=== PATIENT | female | born 1935 | race Asian ===

== ENCOUNTER 2018-04-23 18:22 | Inpatient (IN) | payer MEDICARE, OTHER ==
[~2018-04-23] VITALS: Ht 165.1 cm; Wt 50.0 kg
[2018-04-23] MEDS ORDERED: morphine 2 MG INJ IV STA (18:58)
[2018-04-23] MEDS ORDERED: SOD CHLORIDE 0.9% 1,000 ML IV STA (18:58)
[2018-04-23] MEDS ORDERED: ONDANSETRON 4 MG INJ IV STA ×2 (18:58→21:17)
--- NOTE | 2018-04-23 19:26 | ERD ---
ER Documentation Chief Complaint Chief Complaint SOFIA PIERRE,from home,c/o bilat hip pain r/t fall,no KO HPI This is an 82-year-old female with a history of mkd-sxsjeec-nlapinrgw diabetes mellitus and hypertension. The patient lives on her own and is able to attend her activities of daily living. The patient had a mechanical fall several hours prior to arrival. She states she bent over to machine pecan picker something and then fell on her left hip and left head. She is complaining of mild headache but denies any neck pain. She was unable to get up and bear weight due to the pain in her left hip. The patient had a previous right hip fracture several years prior to arrival. She phoned her daughter who arrived to the home and called 911 to bring her to the emergency department to be further evaluated. She did not experience any changes in vision nor has she experienced any emesis. She states the left hip pain is 10 out of 10 in intensity. ROS All systems reviewed and are negative except as per history of present illness. Allergies Allergies: Coded Allergies: No Known Allergy (Unverified , 04/23/18) PMhx/Soc Hx Alcohol Use: No Hx Substance Use: No Hx Tobacco Use: No Smoking Status: Never smoker Physical Exam Vitals Vital Signs Date Temp Pulse Resp B/P (MAP) Pulse Ox O2 O2 Flow FiO2 Time Delivery Rate 04/23/18 100.0 92 18 184/78 96 18:39 (113) Physical Exam Constitutional:Well-developed. Well-nourished. HEENT:Normocephalic. Left temporal scalp hematoma.Pupils were equal round reactive to light. Moist mucous membranes.No tonsillar exudates. Neck: No nuchal rigidity. No lymphadenopathy. No posterior cervical spine tenderness or step-offs. Respiratory: Not using accessory muscles of respiration.Lungs were clear to auscultation bilaterally. No rhonchi. No rales. No wheezing. Cardiovascular: Regular rate regular rhythm.No murmurs. No rubs were appreciated.S1, S2 normal. Distal pulses are palpable 2+ bilaterally. GI: Abdomen was soft. Nontender. Non Distended. No pulsatile abdominal masses or bruits. No rebound. No guarding. Bowel sounds were present and normal. Muscle skeletal: Patient was unable to lift the left lower extremity against gravity secondary to pain. Left lower extremity was shortened compared to the right and externally rotated. Compartments are soft of the bilateral lower extremities.Normal muscle tone.No assymetrical calf tenderness or swelling. Skin: No petechia, no purpura. No lesions on the palms or the soles of the feet. No maculopapular rash. NEURO: Patient was alert, awake, orientated x3.No facial droop. Gait not observed secondary to pain.Speech had regular rate and rhythm. No focal neurological deficits. Result Diagram: 04/23/18191504/23/181915 Results 24 hrs Laboratory Tests Test 04/23/18 19:16 04/23/18 20:24 White Blood Count 4.9 10^3/ul Red Blood Count 3.29 10^6/ul Hemoglobin 10.5 g/dl Hematocrit 31.9 % Mean Corpuscular Volume 97.0 fl Mean Corpuscular Hemoglobin 31.9 pg Mean Corpuscular Hemoglobin Concent 32.9 g/dl Red Cell Distribution Width 13.2 % Platelet Count 103 10^3/UL Mean Platelet Volume 10.6 fl Immature Granulocytes % 0.400 % Neutrophils % 82.0 % Lymphocytes % 8.6 % Monocytes % 8.0 % Eosinophils % 0.4 % Basophils % 0.6 % Nucleated Red Blood Cells % 0.0 /100WBC Immature Granulocytes # 0.020 10^3/ul Neutrophils # 4.0 10^3/ul Lymphocytes # 0.4 10^3/ul Monocytes # 0.4 10^3/ul Eosinophils # 0.0 10^3/ul Basophils # 0.0 10^3/ul Nucleated Red Blood Cells # 0.0 10^3/ul Prothrombin Time 13.2 Sec Prothrombin Time Ratio 1.0 INR International Normalized Ratio 0.99 Activated Partial Thromboplast Time 31.5 Sec Sodium Level 137 mmol/L Potassium Level 4.2 mmol/L Chloride Level 104 mmol/L Carbon Dioxide Level 27 mmol/L Anion Gap 6 Blood Urea Nitrogen 21 mg/dl Creatinine 0.83 mg/dl Est Glomerular Filtrat Rate mL/min mL/min Glucose Level 218 mg/dl Calcium Level 9.4 mg/dl Total Bilirubin 0.5 mg/dl Direct Bilirubin 0.00 mg/dl Indirect Bilirubin 0.5 mg/dl Aspartate Amino Transf (AST/SGOT) 43 IU/L Alanine Aminotransferase (ALT/SGPT) 36 IU/L Alkaline Phosphatase 68 IU/L Troponin I 0.025 ng/ml Total Protein 7.5 g/dl Albumin 4.2 g/dl Globulin 3.30 g/dl Albumin/Globulin Ratio 1.27 Urine Color YELLOW Urine Clarity CLEAR Urine pH 7.0 Urine Specific [place] 1.012 Urine Ketones NEGATIVE mg/dL Urine Nitrite NEGATIVE mg/dL Urine Bilirubin NEGATIVE mg/dL Urine Urobilinogen NEGATIVE mg/dL Urine Leukocyte Esterase NEGATIVE Tae/ul Urine Microscopic RBC 1 /HPF Urine Microscopic WBC 1 /HPF Urine Hemoglobin NEGATIVE mg/dL Urine Glucose 3+ mg/dL Urine Total Protein 1+ mg/dl Current Medications Medications Dose Sig/Sadaf Start Time Status Last (Trade) Ordered Route PRN Stop Time Admin Dose Reason Admin Sodium 1,000 ml @ Q1H STAT 04/23/18 DC 04/23/18 Chloride 1,000 mls/hr IV 18:58 04/23/18 19:28 19:57 Morphine 2 mg ONCE STAT 04/23/18 DC 04/23/18 Sulfate IV 18:58 04/23/18 19:27 (morphine) 19:01 Ondansetron 4 mg ONCE STAT 04/23/18 DC 04/23/18 HCl (Zofran IV 18:58 04/23/18 19:27 Inj) 19:01 IV Flush 3 ml PER 04/23/18 (NS 3 ml) PROTOCOL IV 20:00 Ondansetron 4 mg Q6H PRN 04/23/18 HCl (Zofran PO 20:00 Tab) NAUSEA/VOMITI NG 650 mg Q6H PRN 04/23/18 Acetaminophen PO .PAIN 1-3 20:00 (Tylenol OR TEMP Tab) 1 tab Q6H PRN 04/23/18 Acetaminophen PO .MOD PAIN 20:00 / 4-6 Hydrocodone Bitart ([place] (5/325)) Morphine 2 mg Q4H PRN 04/23/18 Sulfate IV .SEVERE 20:00 (morphine) PAIN 7-10 Docusate 100 mg Q12 PO 04/23/18 Sodium 20:00 (Colace) Bisacodyl 5 mg DAILY PO 04/24/18 (Dulcolax) 09:00 Procedures/MDM This patient presented to the emergency department mechanical fall. Patient is placed on a monitor and storage bin tender continuous pulse oximetry and IV access was established by nursing staff. CT scan of the patient's head was performed due to blunt head trauma. There is no signs of intracerebral hemorrhage mass-effect or midline shift. I did suspect a left hip fracture. Therefore ancillary laboratory work was obtained as well as preoperative cardiac workup. 12 Lead EKG tracing ordered and reviewed by myself showed: Normal sinus rhythm of 94 bpm and no arrhythmia. [place] interval normal. QRS duration normal. Incomplete right bundle branch block No ST segment elevation No ST segment depression. No changes consistent with acute ischemia. The patient had a radiographic imaging performed of her left hip and pelvis. There is no evidence of pelvic fracture but the patient is a left femoral neck fracture. This was a closed fracture. I spoke with Dr. Hong who kindly stated he will consult from an orthopedic perspective. SCDs were placed onto the patient. The patient will be admitted to the hospitalist Dr. Roque in serious condition to the medical surgical floor. Departure Diagnosis: Primary Impression: Fall with significant injury Encounter type: initial encounter Qualified Codes: W19.XXXA - Unspecified fall, initial encounter Additional Impression: Fracture of femoral neck, left, closed Encounter type: initial encounter Qualified Codes: S72.002A - Fracture of unspecified part of neck of left femur, initial encounter for closed fracture Condition: Serious DRAKE HDZ MD Apr 23, 2018 19:26
[2018-04-23] MEDS ORDERED: NACL 0.9% 3 ML SYG IV SCH (20:00)
[2018-04-23] MEDS ORDERED: HYDROCODONE/APAP (5/325) TAB PO PRN (20:00)
[2018-04-23] MEDS ORDERED: ONDANSETRON 4 MG TAB PO PRN (20:00)
--- NOTE | 2018-04-23 20:03 | HP ---
Date/Time of Note Date/Time of Note DATE: 04/23/18 TIME: 20:03 Assessment/Plan VTE Prophylaxis SCD applied (from Nsg): Yes Pharmacological prophylaxis: NA/contraindicated Pharm contraindication: surgical contra Lines/Catheters IV Catheter Type (from Nrsg): Saline Lock Urinary Cath still in place: No Assessment/Plan Hospital Course This is a 82-year-old female being admitted to the [facility] floor for: #1 acute left hip fracture: Secondary to mechanical fall. Imaging studies do show left femoral neck fracture. Bedrest, Kennedy catheter. Pain management. Preoperative stratification, with cardiac enzymes x3, will check an echocardiogram. Will consult cardiology. We will need to get in touch with patient's family member or obtain a fire fighter [place] to get a full history. Dr. Hong of orthopedic surgery is [place] been consulted by the ED. #2 low-grade fever: No signs of any acute infection at the current time, monitor closely. If temperatures continue to range in the 100s will order blood cultures x2. Monitor for any signs of overt fever. May be a stress response. #3 hypertension: Monitor closely, will need to confirm patient's home medication #4 diabetes mellitus we will check hemoglobin A1c, will need to confirm patient's home medications #5 thrombocytopenia: Unknown etiology, monitor CBC serially. Coags appear normal. Patient may need platelet transfusion prior to surgery platelets do drop. #\6 DVT GI prophylaxis: SCDs, no GI prophylaxis indicated Further treatment strategy will be implemented as per the clinical course We will need to again contact the patient's daughter her next of kin in regards to patient's history and functional status. Will also need to confirm patient's home medications. Result Diagram: 04/23/18191504/23/181915 Results 24hrs Laboratory Tests Test 04/23/18 19:16 White Blood Count 4.9 Red Blood Count 3.29 L Hemoglobin 10.5 L Hematocrit 31.9 L Mean Corpuscular Volume 97.0 Mean Corpuscular Hemoglobin 31.9 Mean Corpuscular Hemoglobin Concent 32.9 Red Cell Distribution Width 13.2 Platelet Count 103 L Mean Platelet Volume 10.6 H Immature Granulocytes % 0.400 Neutrophils % 82.0 H Lymphocytes % 8.6 L Monocytes % 8.0 Eosinophils % 0.4 Basophils % 0.6 Nucleated Red Blood Cells % 0.0 Immature Granulocytes # 0.020 Neutrophils # 4.0 Lymphocytes # 0.4 L Monocytes # 0.4 Eosinophils # 0.0 Basophils # 0.0 Nucleated Red Blood Cells # 0.0 Prothrombin Time 13.2 Prothrombin Time Ratio 1.0 INR International Normalized Ratio 0.99 Activated Partial Thromboplast Time 31.5 Sodium Level 137 Potassium Level 4.2 Chloride Level 104 Carbon Dioxide Level 27 Anion Gap 6 Blood Urea Nitrogen 21 H Creatinine 0.83 Est Glomerular Filtrat Rate mL/min Glucose Level 218 Calcium Level 9.4 Total Bilirubin 0.5 Direct Bilirubin 0.00 Indirect Bilirubin 0.5 Aspartate Amino Transf (AST/SGOT) 43 Alanine Aminotransferase (ALT/SGPT) 36 Alkaline Phosphatase 68 Troponin I 0.025 Total Protein 7.5 Albumin 4.2 Globulin 3.30 H Albumin/Globulin Ratio 1.27 HPI/ROS Admit Date/Time Admit Date/Time Hx of Present Illness Chief complaint: Brought in by ambulance from home status post fall The following history was obtained from the ED physician documentation as the patient was not able to provide adequate history given language barrier and I was unable to contact next of kin or use fire fighter airport phone This is an 82-year-old female with a history of jpi-mamxrwo-pyeznypsk diabetes mellitus and hypertension. The patient lives on her own and is able to attend her activities of daily living. The patient had a mechanical fall several hours prior to arrival. She states she bent over to cotton picker something and then fell on her left hip and left head. She is complaining of mild headache but denies any neck pain. She was unable to get up and bear weight due to the pain in her left hip. The patient had a previous right hip fracture several years prior to arrival. She phoned her daughter who arrived to the home and called 911 to bring her to the emergency department to be further evaluated. She did not exp erience any changes in vision nor has she experienced any emesis. She states the left hip pain is 10 out of 10 in intensity. Allergies: NKDA Medications: Unknown, will need to confirm ROS Subjective hx not possible: other (Language barrier) PMH/Family/Social Past Medical History Diabetes mellitus, hypertension Coded Allergies: No Known Allergy (Unverified , 04/23/18) Past Surgical History Right hip surgery Family History Significant Family History: no pertinent family hx Social History Alcohol Use: none Smoking Status: Never smoker Drug Use: none Exam/Review of Systems Vital Signs Vitals Vital Signs Date Temp Pulse Resp B/P (MAP) Pulse Ox O2 O2 Flow FiO2 Time Delivery Rate 04/23/18 100.0 92 18 184/78 96 18:39 (113) Exam Exam General: Patient is a pleasant female currently lying in bed sleeping, she is easily arousable, language barrier makes it difficult to communicate HEENT: Atraumatic, normocephalic. The pupils are equal, round and reactive. Extraocular motor are intact Neck: Supple with full range of motion. No rigidity or meningismus Chest: Nontender Lungs: Clear to auscultation bilaterally no crackles rales or wheezing Heart: Normal S1-S2, Regular rhythm and rate. No murmur, S3, or S4 Abdomen: Soft , nontender, nondistended , bowel sounds are present. No guarding no rebound tenderness , No masses or organomegaly. No costovertebral temporal angle mass Extremities: Left hip pain to palpation, Neurologic: Normal mental status, speech normal, cranial nerves II through XII are intact, motor and sensory are intact, gait not assessed secondary to fracture and pain Additional Comments EKG: Normal sinus rhythm at approximately 94 bpm, no ST or T wave abnormalities concerning for acute ischemia PROCEDURE: DX Chest 1 View CLINICAL INDICATION: Abdominal pain. ED patient. TECHNIQUE: AP Portable chest. COMPARISON: None FINDINGS: Hyperinflated lungs. Normal cardiac and mediastinal configuration. Aortic calcified plaque present. No CHF or hilar enlargement. Costochondral calcifications are present. Lungs are clear. IMPRESSION: 1. COPD/emphysema. 2. Chronic senescent change. 3. No acute disease. RPTAT: HLRS Physician Konrad Date Time Electronically viewed and signed by Physician Konrad on 04/23/2018 19:30 RS/ CC: DRAKE HDZ MD [id number] PROCEDURE: DX Hip 2 view. CLINICAL INDICATION: Fell on left hip. Left hip pain. TECHNIQUE: AP and lateral views COMPARISON: None FINDINGS: Osseous structures: Bones are demineralized. Acute left femoral neck fracture. The left superior inferior pubic rami are intact. No lytic or blastic changes. Joint space: Joint space maintained. Soft tissues: Normal appearing soft tissues. No radiopaque foreign body or soft tissue gas. IMPRESSION: Acute left femoral neck fracture. RPTAT: HLRS Jorge Núñez, Physician Date Time Electronically viewed and signed by Jorge Núñez Physician on 04/23/2018 19:32 RS/ CC: DRAKE HDZ MD [id number] PROCEDURE: DX Pelvis x-ray CLINICAL INDICATION: 80-year-old female. Fell. Left hip pain. TECHNIQUE: AP view of the pelvis COMPARISON: None FINDINGS: Osseous structures: The bones are demineralized. There is an acute fracture involving the left femoral neck. The left superior and inferior pubic rami are intact. Right hip prosthesis is present with anatomic alignment of the components. No lytic or blastic changes. Joints: Intact sacroiliac joints. Intact pubic symphysis. No hip dislocation. Soft tissues: No radiopaque foreign body or soft tissue gas. Arterial calcified plaque not visualized. IMPRESSION: 1. Acute left hip fracture. 2. Anatomically aligned right hip prosthesis. RPTAT: RS Jorge Núñez Physician Date Time Electronically viewed and signed by Jorge Núñez Physician on 04/23/2018 19:31 RS/ CC: DRAKE HDZ MD [id number] GEENA SAHU Apr 23, 2018 20:03
[2018-04-23] MEDS ORDERED: HYDROmorphONE 0.5 MG/0.5 ML SYG IV STA (21:17)
[2018-04-23] MEDS: morphine 2 MG INJ IV PRN (21:51)
[2018-04-23 22:00] VITALS: BP_SYST 151; BP_SYST 174; BP_DIAS 68; BP_DIAS 72; PULSE 107; RESP 18
[2018-04-23] MEDS ORDERED: hydrALAzine 20 MG INJ IV PRN (22:30)
[2018-04-23] MEDS: ACETAMINOPHEN 325 MG TAB PO PRN (22:39)
[2018-04-23] MEDS: DOCUSATE SODIUM 100 MG CAP PO SCH (22:39)
[2018-04-23 23:00] VITALS: BP 151/68; PULSE 107
[2018-04-23 23:48] VITALS: Ht 165.1 cm; Wt 50.0 kg
[2018-04-24 01:50] VITALS: BP 115/56; PULSE 93; RESP 18
[2018-04-24] MEDS: morphine 2 MG INJ IV PRN (05:16)
[2018-04-24 07:54] VITALS: BP 125/61; PULSE 82; RESP 18
[2018-04-24] MEDS: BISACODYL (EC) 5 MG TAB PO SCH (09:00)
[2018-04-24] MEDS: DOCUSATE SODIUM 100 MG CAP PO SCH ×2 (09:00→20:36)
--- NOTE | 2018-04-24 10:16 | PN ---
Date/Time of Note Date/Time of Note DATE: 04/24/18 TIME: 10:06 Assessment/Plan VTE Prophylaxis SCD applied (from Nsg): Yes Pharmacological prophylaxis: NA/contraindicated Pharm contraindication: surgical contra Lines/Catheters IV Catheter Type (from Nrsg): Saline Lock Urinary Cath still in place: Yes Reason Cath still needed: other (indicate) (immobile) Assessment/Plan Assessment/Plan 82 yo woman history of HTN and diabetes presents with acute L hip fracture. # acute left hip fracture: - Secondary to mechanical fall. - Imaging studies do show left femoral neck fracture. - Bedrest, Kennedy catheter. - Opioid analgesics. - No cardiac history. Patient can ambulate without SOB or dyspnea. Denies heart failure symptoms. - Cardiovascularly, patient is optimized for surgery with no further cardiac workup needed. She does have thrombocytopenia with platelets 87. From medicine perspective, as long as platelets >50 she is optimized for surgery. #Elevated temperature - Temp low 100s. - CXR negative for consolidations. UA negative for bacteruria or infection. Patient has no other signs of infection. - This may be a stress response # hypertension: - Now normotensive after pain control and IV hydralazine x1. - Monitor carefully; will get patient's home meds. # diabetes mellitus - Hgb A1C 6.8 - Sliding scale insulin - Awaiting patient's home medications. # thrombocytopenia: - Unknown etiology - Transfuse for platelets <50 or per surgical goal. # DVT GI prophylaxis: SCDs, no GI prophylaxis indicated Result Diagram: 04/24/18 0416 04/24/18 0438 Subjective 24 Hr Interval Summary Free Text/Dictation No acute overnight events. L hip pain adequately controlled. Patient bumped for surgery today. Will start diet, make NPO after midnight. The patient denies any cardiac history except for HTN. Able to ambulate without chest pain. No dyspnea, orthopnea, PND, or other heart failure symptoms. She does not know what medications she takes at home. Daughter at bedside updated about the plan. She also does not know what medications the patient takes. Exam/Review of Systems Exam Vitals Vital Signs Date Temp Pulse Resp B/P (MAP) Pulse Ox O2 O2 Flow FiO2 Time Delivery Rate 04/24/18 99.6 82 18 125/61 96 Nasal 07:54 (82) Cannula 2/9/19 2.0 22:00 Intake and Output 04/23/18 04/23/18 04/24/18 1515:00 23:00 07:00 OutputOutput Total 750 ml BalanceBalance -750 ml Exam General: Patient is a pleasant woman, frail appearing and thin, speaks some [place]ian and fluent Latvian. HEENT: Atraumatic, normocephalic. The pupils are equal, round and reactive. Extraocular motor are intact Neck: Supple with full range of motion. No rigidity or meningismus Chest: Nontender Lungs: Clear to auscultation bilaterally no crackles rales or wheezing Heart: Normal S1-S2, Regular rhythm and rate. No murmur, S3, or S4 Abdomen: Soft , nontender, nondistended , Extremities: Left hip pain to palpation, Medications Medication Current Medications IV Flush (NS 3 ml) 3 ml PER PROTOCOL IV ; Start 04/23/18 at 20:00 Ondansetron HCl (Zofran Tab) 4 mg Q6H PRN PO NAUSEA/VOMITING; Start 04/23/18 at 20:00 Acetaminophen (Tylenol Tab) 650 mg Q6H PRN PO .PAIN 1-3 OR TEMP Last administered on 04/23/18at 22:39; Admin Dose 650 MG; Start 04/23/18 at 20:00 Acetaminophen/ Hydrocodone Bitart ([place] (5/325)) 1 tab Q6H PRN PO .MOD PAIN 4- 6; Start 04/23/18 at 20:00 Morphine Sulfate (morphine) 2 mg Q4H PRN IV .SEVERE PAIN 7-10 Last administered on 04/24/18at 05:16; Admin Dose 2 MG; Start 04/23/18 at 20:00 Docusate Sodium (Colace) 100 mg Q12 PO Last administered on 04/23/18at 22:39; Admin Dose 100 MG; Start 04/23/18 at 20:00 Bisacodyl (Dulcolax) 5 mg DAILY PO ; Start 04/24/18 at 09:00 Hydralazine HCl (Apresoline) 10 mg Q6H PRN IV ELEVATED BLOOD PRESSURE Last administered on 04/23/18at 22:39; Admin Dose 10 MG; Start 04/23/18 at 22:30 SEVERO STOKES MD Apr 24, 2018 10:16
--- NOTE | 2018-04-24 10:17 | CONS ---
DATE OF ADMISSION: 04/23/2018 DATE OF CONSULTATION: 04/24/2018 HISTORY OF PRESENT ILLNESS: The patient is an 82-year-old female who was admitted on April when she was brought into the emergency room because of the painful swelling and limit of marjorie on involving her left hip. According to available information, she is usually ambulatory without any major difficulties until the day of admission when she have sustained a ground-level fall. At the t birgit of the fall, she landed on her left hip and buttock and following the fall, she was not able to s tand up or walk because of the severe pain. My examination revealed an 82-year-old female who is alert and oriented. She was complaining of pain involving her left hip. There was tenderness and swelling around the left hip. There was an obviou s shortening and external rotation of the left lower extremity. Range of motion of the left hip was not tested because of the obvious pain. There were no signs of acute neurovascular compromise involv ing the left lower extremity. DIAGNOSTIC STUDIES: X-rays of the left hip revealed an obvious subcapital femoral neck fracture of t he left hip which is displaced. Of interest is that she has a hemiarthroplasty prosthesis is in the right hip which was done about 10 years ago. DIAGNOSTIC IMPRESSION: Subcapital femoral neck fracture of the left hip. TREATMENT PLAN: To carry out the hemiarthroplasty of the left hip as soon as she can be medically cl eared for surgery. Dictated By: SOLO LASSITER MD IK/NTS Conf#: [id number] DID#: [id number] CC: GEENA SAHU MD; SEVERO STOKES MD; SEVERO DON MD;*End*
[2018-04-24] MEDS ORDERED: GLUCOSE GEL 15 GRAM TUBE PO PRN ×2 (10:30)
[2018-04-24] MEDS ORDERED: DEXTROSE 50% 50 ML SYRINGE IV PRN ×2 (10:30)
[2018-04-24] MEDS ORDERED: GLUCAGON 1 MG INJ IM PRN (10:30)
[2018-04-24] MEDS ORDERED: GLUCOSE GEL 15 GRAM TUBE BUCCAL PRN (10:30)
[2018-04-24] MEDS: INSULIN ASPART [NOVOLOG] 3 ML PEN SC SCH ×3 (12:52→20:34)
[2018-04-24 14:28] VITALS: BP 134/63; PULSE 66; RESP 18
[2018-04-24 20:27] VITALS: BP 128/81; PULSE 63; RESP 18
[2018-04-25 01:50] VITALS: BP 149/63; PULSE 73; RESP 18
[2018-04-25] MEDS: ACCU-CHEK XX SCH (02:00)
[2018-04-25 07:53] VITALS: BP 150/67; PULSE 70; RESP 18
[2018-04-25 08:07] VITALS: BP 139/62
[2018-04-25] MEDS: DOCUSATE SODIUM 100 MG CAP PO SCH ×2 (08:28→21:55)
[2018-04-25] MEDS: BISACODYL (EC) 5 MG TAB PO SCH (08:28)
[2018-04-25] MEDS: INSULIN ASPART [NOVOLOG] 3 ML PEN SC SCH ×4 (08:28→21:00)
--- NOTE | 2018-04-25 11:07 | PN ---
Date/Time of Note Date/Time of Note DATE: 04/25/18 TIME: 11:01 Assessment/Plan VTE Prophylaxis Risk score (from Nsg)>0 risk: 10 SCD applied (from Nsg): Yes SCD contraindicated: other Pharmacological prophylaxis: other Lines/Catheters IV Catheter Type (from Nrsg): Saline Lock Urinary Cath still in place: Yes Reason Cath still needed: urinary retention Assessment/Plan Hospital Course S: No acute events overnight, seen by orthopedic surgery team yesterday. O: VS - see below PE: General: Patient is a pleasant woman, frail appearing and thin, lying in bed presently HEENT: Atraumatic, normocephalic. The pupils are equal, round and reactive. Extraocular motor are intact Neck: Supple with full range of motion. No rigidity or meningismus Chest: Nontender Lungs: Clear to auscultation bilaterally no crackles rales or wheezing Heart: Normal S1-S2, Regular rhythm and rate. No murmur, S3, or S4 Abdomen: Soft , nontender, nondistended , Extremities: Positive left hip pain to palpation Assessment/Plan: 82 yo woman history of HTN and diabetes presents with acute L h ip fracture. # acute left hip fracture: - Secondary to mechanical fall- Imaging studies do show left femoral neck fracture. -For now continue bedrest, Kennedy catheter. - Opioid analgesics, PT and OT eval - Apparently patient has no cardiac history. Patient can ambulate without SOB or dyspnea. Earlier this admission, denied heart failure symptoms. - Cardiovascularly and medically, patient appears optimized for surgery. Troponins are negative, no significant EKG changes, A1c 6.8, but sugars are stable she does have thrombocytopenia with platelets 87. From medicine perspective, as long as platelets >50 she is likely optimized for surgery. #Elevated temperature- Temp low 100s as late as yesterday, none overnight or this morning- CXR negative for consolidations. UA negative for bacteruria or infection. Patient has no other signs of infection. -Monitor for now, WBC normal, this may be a stress response # hypertension: - Now normotensive after pain control and IV hydralazine x1. - Monitor carefully; will get patient's home meds. # diabetes mellitus- Hgb A1C 6.8 -Continue sliding scale insulin - Awaiting patient's home medications. # thrombocytopenia: - Unknown etiology. Last CBC was yesterday, platelets 87, no signs of bleeding -Monitor, only consider transfuse for platelets <50 or per surgical goal. # DVT GI prophylaxis: SCDs, no GI prophylaxis indicated Result Diagram: 04/24/18 0416 04/24/18 0438 Results 24hrs Laboratory Tests Test 04/24/18 12:48 04/24/18 17:57 04/24/18 20:32 04/25/18 06:39 Bedside Glucose 158 148 170 Lab Scanned BLOOD TRANSFUSIO Report N Test 04/25/18 08:24 Bedside Glucose 145 Exam/Review of Systems Exam Vitals Vital Signs Date Temp Pulse Resp B/P (MAP) Pulse Ox O2 O2 Flow FiO2 Time Delivery Rate 04/25/18 139/62 08:07 (87) 04/25/18 Nasal 2.0 08:00 Cannula 04/25/18 98.0 70 18 100 07:53 Intake and Output 04/24/18 04/24/18 04/25/18 1515:00 23:00 07:00 IntakeIntake Total 550 ml 300 ml OutputOutput Total 150 ml 550 ml BalanceBalance 400 ml -250 ml Results Results 24hrs Laboratory Tests Test 04/24/18 12:48 04/24/18 17:57 04/24/18 20:32 04/25/18 06:39 Bedside Glucose 158 148 170 Lab Scanned BLOOD TRANSFUSIO Report N Test 04/25/18 08:24 Bedside Glucose 145 Medications Medication Current Medications IV Flush (NS 3 ml) 3 ml PER PROTOCOL IV ; Start 04/23/18 at 20:00 Ondansetron HCl (Zofran Tab) 4 mg Q6H PRN PO NAUSEA/VOMITING; Start 04/23/18 at 20:00 Acetaminophen (Tylenol Tab) 650 mg Q6H PRN PO .PAIN 1-3 OR TEMP Last administered on 04/23/18at 22:39; Admin Dose 650 MG; Start 04/23/18 at 20:00 Acetaminophen/ Hydrocodone Bitart (Clarita (5/325)) 1 tab Q6H PRN PO .MOD PAIN 4- 6; Start 04/23/18 at 20:00 Morphine Sulfate (morphine) 2 mg Q4H PRN IV .SEVERE PAIN 7-10 Last administered on 04/24/18at 05:16; Admin Dose 2 MG; Start 04/23/18 at 20:00 Docusate Sodium (Colace) 100 mg Q12 PO Last administered on 04/25/18at 08:28; Admin Dose 100 MG; Start 04/23/18 at 20:00 Bisacodyl (Dulcolax) 5 mg DAILY PO Last administered on 04/25/18at 08:28; Admin Dose 5 MG; Start 04/24/18 at 09:00 Hydralazine HCl (Apresoline) 10 mg Q6H PRN IV ELEVATED BLOOD PRESSURE Last administered on 04/23/18at 22:39; Admin Dose 10 MG; Start 04/23/18 at 22:30 Diagnostic Test (Pha) (Accu-Chek) 1 ea 02 XX ; Start 04/25/18 at 02:00 Insulin Aspart (Novolog Insulin Pen) NOVOLOG *MILD* ALGORITHM WITH MEALS BEDTIME SC Last administered on 04/25/18 08:28; Admin Dose 1 UNIT; Start 04/24/18 at 11:40 Miscellaneous Information 1 ea NOTE XX ; Start 04/24/18 at 10:30 Glucose (Glutose) 15 gm Q15M PRN PO DECREASED GLUCOSE; Start 04/24/18 at 10:30 Glucose (Glutose) 22.5 gm Q15M PRN PO DECREASED GLUCOSE; Start 04/24/18 at 10:30 Dextrose (D50w Syringe) 25 ml Q15M PRN IV DECREASED GLUCOSE; Start 04/24/18 at 10:30 Dextrose (D50w Syringe) 50 ml Q15M PRN IV DECREASED GLUCOSE; Start 04/24/18 at 10:30 Glucagon (Glucagen) 1 mg Q15M PRN IM DECREASED GLUCOSE; Start 04/24/18 at 10:30 Glucose (Glutose) 15 gm Q15M PRN BUCCAL DECREASED GLUCOSE; Start 04/24/18 at 10:30 CESAR STONE Apr 25, 2018 11:07
[2018-04-25 13:20] VITALS: BP 150/68; PULSE 81; RESP 18
--- NOTE | 2018-04-25 16:45 | RADRPT ---
Echocardiogram Report Patient Name: MARILY TABARESPatient ID: [id number] : 5 ([id number] )Study Date: 04/24/2018 9:05:44 AM Gender: FAccession #: [id number] Tech: Charly Castro RDCS Location: [facility] Ref.Physician: GEENA SAHU Height(Cm): BSA: Weight(Kg): Quality: AdequateOrder Physician: Jesus Sahu Account #: Procedures: Echocardiographic Report: Transthoracic echocardiogram with complete 2D, M-Mode, and doppler examination. Indications: Pre-op. Measurements: 2D/M Mode Doppler Measurement Value Normal Range Measurement Value Normal Range LVIDd 2D 3.0 [ 3.8 - 5.2 ] cm AV Peak David 1.2 [ 100.0 - 170.0 ] cm/sec LVIDs 2D 2.0 [ 2.2 - 3.5 ] cm AV Peak PG 6.0 [ 2.0 - 9.0 ] mmHg LVPWd 2D 0.6 [ 0.6 - 0.9 ] cm LVOT Peak David 0.9 [ 70.0 - 110.0 ] cm/sec IVSd 2D 0.8 [ 0.6 - 0.9 ] cm LVOT Peak PG 3.0 [ 2.0 - 6.0 ] mmHg AoR Diam 2D 1.9 [ 2.3 - 3.1 ] cm MV E Peak David 1.2 [ 60.0 - 130.0 ] cm/sec EDV 2D 33.9 [ 46.0 - 106.0 ] ml MV A Peak David 1.1 [ 100.0 - 120.0 ] cm/sec ESV 2D 12.7 [ 14.0 - 42.0 ] ml MV E/A 1.1 [ 0.8 - 1.5 ] ratio EF 2D 62.5 [ 54.0 - 74.0 ] percent MV Decel Time 169 [ 104 - 258 ] msec LA Dimen 2D 2.7 [ 2.7 - 3.8 ] cm Lat E` David 0.1 [ 10.0 - 15.0 ] cm/sec Lateral E/E` 15.8 [ 1.0 - 2.0 ] ratio Med E` David 0.1 cm/sec MV E/A 1.1 [ 0.8 - 1.5 ] ratio TR Peak David 2.5 [ 100.0 - 280.0 ] cm/sec TR Peak PG 25.0 mmHg RVSP 25.0 [ 10.0 - 36.0 ] mmHg RA Pressure 3.0 mmHg Findings: Left Ventricle: Normal left ventricular systolic function. Normal left ventricular cavity size. Normal left ventricular wall thickness. Ejection fraction is visually estimated at 60-65 %. Right Ventricle: Normal right ventricular size. Normal right ventricular systolic function. Left Atrium: The left atrium is normal in size. Right Atrium: The right atrium is normal in size. Mitral Valve: Mild mitral annular calcification. Trace mitral regurgitation. Aortic Valve: Normal appearance of the aortic valve. No aortic regurgitation. Tricuspid Valve: Normal appearance of the tricuspid valve. There is trace tricuspid regurgitation. Pericardium: Normal pericardium with no significant pericardial effusion. Aorta: Normal aortic root. IVC: Normal size and normal respiratory collapse consistent with normal right atrial pressure. Conclusions: Normal left ventricular systolic function. Normal left ventricular cavity size. Normal left ventricular wall thickness. Ejection fraction is visually estimated at 60-65 %. Mild mitral annular calcification. Trace mitral regurgitation. Normal appearance of the tricuspid valve. There is trace tricuspid regurgitation. Electronically Signed By: Armen Ramos 2018-04-25 16:44:40 PST
[2018-04-25 19:24] VITALS: BP 147/65; PULSE 78; RESP 16
[2018-04-25] MEDS: ATORVASTATIN 10 MG TAB PO SCH (21:55)
[2018-04-25] MEDS: DOXEPIN 25 MG CAP PO SCH (21:55)
[2018-04-26] VITALS (22 sets, daily range): BP systolic 98–168; BP diastolic 38–71; PULSE 71–94; RESP 14–40
[2018-04-26] MEDS ORDERED: SOD CHLORIDE 0.45% 1,000 ML IV SCH
[2018-04-26] MEDS: ACCU-CHEK XX SCH (02:00)
[2018-04-26] MEDS ORDERED: EPHEDrine SULFATE 50 MG/5 ML SYG ONE (07:00)
[2018-04-26] MEDS: INSULIN ASPART [NOVOLOG] 3 ML PEN SC SCH ×4 (08:30→21:00)
[2018-04-26] MEDS: LOSARTAN 50 MG TAB PO SCH (08:43)
[2018-04-26] MEDS ORDERED: LINAGLIPTIN 5 MG TABLET PO SCH (09:00)
[2018-04-26] MEDS: CHOLECALCIFEROL 2,000 UNIT CAP PO SCH (09:00)
[2018-04-26] MEDS: BISACODYL (EC) 5 MG TAB PO SCH (09:00)
[2018-04-26] MEDS ORDERED: ATORVASTATIN 10 MG TAB PO ONE (09:00)
[2018-04-26] MEDS: DOCUSATE SODIUM 100 MG CAP PO SCH ×2 (09:00→21:43)
[2018-04-26] MEDS ORDERED: POTASSIUM PHOSPHATE 20 MEQ in SOD CHLORIDE 0.9% 250 ML IVPB ONE (10:00)
--- NOTE | 2018-04-26 12:29 | PN ---
Date/Time of Note Date/Time of Note DATE: 04/26/18 TIME: 12:26 Assessment/Plan VTE Prophylaxis Risk score (from Nsg)>0 risk: 8 SCD applied (from Nsg): Yes Pharmacological prophylaxis: other Lines/Catheters IV Catheter Type (from Nrsg): Peripheral IV Urinary Cath still in place: Yes Reason Cath still needed: urinary retention Assessment/Plan Hospital Course S: No acute events overnight, seen by orthopedic surgery team yesterday. O: VS - see below PE: General: lying in bed presently, no acute distress, sleeping HEENT: Atraumatic, normocephalic. The pupils are equal, round and reactive. Extraocular motor are intact Neck: Supple with full range of motion. No rigidity or meningismus Chest: Nontender Lungs: Clear to auscultation bilaterally no crackles rales or wheezing Heart: Normal S1-S2, Regular rhythm and rate. No murmur, S3, or S4 Abdomen: Soft , nontender, nondistended , Extremities: Positive left hip pain to palpation Assessment/Plan: 82 yo woman history of HTN and diabetes presents with acute L hip fracture. # acute left hip fracture: - Secondary to mechanical fall- Imaging studies do show left femoral neck fracture. - For now continue bedrest, Kennedy catheter. -Continue careful opioid analgesics, follow-up recognitions PT and OT eval - Apparently patient has no cardiac history. Patient can ambulate without SOB or dyspnea. Earlier this admission, denied heart failure symptoms. - Cardiovascularly and medically, patient appears optimized for surgery. Tr oponins are negative, no significant EKG changes, A1c 6.8, but sugars are stable she does have thrombocytopenia , but no signs of bleeding; from medicine perspective, as long as platelets >50 she is likely optimized for surgery. #Elevated temperature- Temp low 100s 2 days ago, but no elevated temperatures in the last 24 hours- CXR negative for consolidations. UA negative for bacteruria or infection. Patient has no other signs of infection. -Monitor for now, WBC normal, this may be a stress response # hypertension: Presently stable. - Monitor carefully; follow-up list of patient's home meds. # diabetes mellitus- Hgb A1C 6.8 -Continue sliding scale insulin # thrombocytopenia: - Unknown etiology. Platelets down to 66 today, but no signs of bleeding per -Monitor, only consider transfuse for platelets <50 or per surgical goal. # DVT GI prophylaxis: SCDs, no GI prophylaxis indicated Result Diagram: 04/26/18 0443 04/26/18 0443 Results 24hrs Laboratory Tests Test 04/25/18 12:45 04/25/18 17:40 04/25/18 21:59 04/26/18 04:43 Bedside Glucose 202 138 176 White Blood Count 6.2 Red Blood Count 4.06 #L Hemoglobin 12.9 Hematocrit 38.5 Mean Corpuscular 94.8 Volume Mean Corpuscular 31.8 Hemoglobin Mean Corpuscular 33.5 Hemoglobin Concent Red Cell 13.4 Distribution Width Platelet Count 66 #L Mean Platelet Volume 11.3 H Immature 0.300 Granulocytes % Neutrophils % 78.9 H Lymphocytes % 11.5 L Monocytes % 7.0 Eosinophils % 1.8 Basophils % 0.5 Nucleated Red Blood 0.0 Cells % Immature 0.020 Granulocytes # Neutrophils # 4.9 Lymphocytes # 0.7 L Monocytes # 0.4 Eosinophils # 0.1 Basophils # 0.0 Nucleated Red Blood 0.0 Cells # Sodium Level 137 Potassium Level 4.0 Chloride Level 102 Carbon Dioxide Level 28 Anion Gap 7 Blood Urea Nitrogen 16 Creatinine 0.72 Est Glomerular Filtrat Rate mL/min Glucose Level 158 Calcium Level 8.6 Phosphorus Level 2.4 L Magnesium Level 2.2 Test 04/26/18 08:36 Bedside Glucose 130 Exam/Review of Systems Exam Vitals Vital Signs Date Temp Pulse Resp B/P (MAP) Pulse Ox O2 O2 Flow FiO2 Time Delivery Rate 04/26/18 98.4 71 18 162/68 95 Room Air 08:29 (99) 04/25/18 2.0 20:00 Intake and Output 04/25/18 04/25/18 04/26/18 1515:00 23:00 07:00 IntakeIntake Total 120 ml 200 ml 200 ml OutputOutput Total 500 ml 600 ml BalanceBalance 120 ml -300 ml -400 ml Results Results 24hrs Laboratory Tests Test 04/25/18 12:45 04/25/18 17:40 04/25/18 21:59 04/26/18 04:43 Bedside Glucose 202 138 176 White Blood Count 6.2 Red Blood Count 4.06 #L Hemoglobin 12.9 Hematocrit 38.5 Mean Corpuscular 94.8 Volume Mean Corpuscular 31.8 Hemoglobin Mean Corpuscular 33.5 Hemoglobin Concent Red Cell 13.4 Distribution Width Platelet Count 66 #L Mean Platelet Volume 11.3 H Immature 0.300 Granulocytes % Neutrophils % 78.9 H Lymphocytes % 11.5 L Monocytes % 7.0 Eosinophils % 1.8 Basophils % 0.5 Nucleated Red Blood 0.0 Cells % Immature 0.020 Granulocytes # Neutrophils # 4.9 Lymphocytes # 0.7 L Monocytes # 0.4 Eosinophils # 0.1 Basophils # 0.0 Nucleated Red Blood 0.0 Cells # Sodium Level 137 Potassium Level 4.0 Chloride Level 102 Carbon Dioxide Level 28 Anion Gap 7 Blood Urea Nitrogen 16 Creatinine 0.72 Est Glomerular Filtrat Rate mL/min Glucose Level 158 Calcium Level 8.6 Phosphorus Level 2.4 L Magnesium Level 2.2 Test 04/26/18 08:36 Bedside Glucose 130 Medications Medication Current Medications IV Flush (NS 3 ml) 3 ml PER PROTOCOL IV ; Start 04/23/18 at 20:00 Ondansetron HCl (Zofran Tab) 4 mg Q6H PRN PO NAUSEA/VOMITING; Start 04/23/18 at 20:00 Acetaminophen (Tylenol Tab) 650 mg Q6H PRN PO .PAIN 1-3 OR TEMP Last administered on 04/23/18at 22:39; Admin Dose 650 MG; Start 04/23/18 at 20:00 Acetaminophen/ Hydrocodone Bitart (Gamaliel (5/325)) 1 tab Q6H PRN PO .MOD PAIN 4- 6; Start 04/23/18 at 20:00 Morphine Sulfate (morphine) 2 mg Q4H PRN IV .SEVERE PAIN 7-10 Last administered on 04/24/18at 05:16; Admin Dose 2 MG; Start 04/23/18 at 20:00 Docusate Sodium (Colace) 100 mg Q12 PO Last administered on 04/25/18at 21:55; Admin Dose 100 MG; Start 04/23/18 at 20:00 Bisacodyl (Dulcolax) 5 mg DAILY PO Last administered on 04/25/18at 08:28; Admin Dose 5 MG; Start 04/24/18 at 09:00 Hydralazine HCl (Apresoline) 10 mg Q6H PRN IV ELEVATED BLOOD PRESSURE Last administered on 04/23/18at 22:39; Admin Dose 10 MG; Start 04/23/18 at 22:30 Diagnostic Test (Pha) (Accu-Chek) 1 ea 02 XX ; Start 04/25/18 at 02:00 Insulin Aspart (Novolog Insulin Pen) NOVOLOG *MILD* ALGORITHM WITH MEALS BEDTIME SC Last administered on 04/25/18at 12:47; Admin Dose 2 UNIT; Start 04/24/18 at 11:40 Miscellaneous Information 1 ea NOTE XX ; Start 04/24/18 at 10:30 Glucose (Glutose) 15 gm Q15M PRN PO DECREASED GLUCOSE; Start 04/24/18 at 10:30 Glucose (Glutose) 22.5 gm Q15M PRN PO DECREASED GLUCOSE; Start 04/24/18 at 10:30 Dextrose (D50w Syringe) 25 ml Q15M PRN IV DECREASED GLUCOSE; Start 04/24/18 at 10:30 Dextrose (D50w Syringe) 50 ml Q15M PRN IV DECREASED GLUCOSE; Start 04/24/18 at 10:30 Glucagon (Glucagen) 1 mg Q15M PRN IM DECREASED GLUCOSE; Start 04/24/18 at 10:30 Glucose (Glutose) 15 gm Q15M PRN BUCCAL DECREASED GLUCOSE; Start 04/24/18 at 10:30 Cholecalciferol (Vitamin D) 2,000 unit DAILY PO ; Start 04/26/18 at 09:00 Doxepin HCl (Sinequan) 25 mg HS PO Last administered on 04/25/18at 21:55; Admin Dose 25 MG; Start 04/25/18 at 21:00 Losartan Potassium (Cozaar) 50 mg DAILY PO Last administered on 04/26/18at 08:43; Admin Dose 50 MG; Start 04/26/18 at 09:00 Miscellaneous Information (* Miscellaneous Pharmacy Order) SHIRLEY CASTAÑEDA 6,000 UN... ONCE XX ; Start 04/25/18 at 16:30; Status UNV Atorvastatin Calcium (Lipitor) 10 mg HS PO Last administered on 04/25/18at 21:55; Admin Dose 10 MG; Start 04/25/18 at 21:00 Linagliptin (Tradjenta) 5 mg DAILY PO ; Start 04/26/18 at 09:00 Sodium Chloride 1,000 ml @ 40 mls/hr Q24H IV Last administered on 04/26/18at 00:06; Admin Dose 40 MLS/HR; Start 04/26/18 at 00:00 Potassium Phosphate 20 meq/ Sodium Chloride 254.5455 ml @ 63.636 m... ONCE ONCE IVPB Last administered on 04/26/18at 11:02; Admin Dose 63.636 MLS/HR; Start 04/26/18 at 10:00; Stop 04/26/18 at 13:59 CESAR STONE Apr 26, 2018 12:29
[2018-04-26] MEDS ORDERED: LOSA50TA14 PO (14:24)
[2018-04-26] MEDS ORDERED: DOXE25CA2 PO (14:24)
[2018-04-26] MEDS ORDERED: SITA50TA2 PO (14:24)
[2018-04-26] MEDS ORDERED: ATOR10TA65 PO (14:24)
[2018-04-26] MEDS ORDERED: CHOL200078 PO (14:24)
--- NOTE | 2018-04-26 17:09 | PREAC ---
Date/Time of Note Date/Time of Note DATE: 04/26/18 TIME: 17:07 Anesthesia Eval and Record Evaluation Time Pre-Procedure Interview DATE: 04/26/18 TIME: 17:07 Age 82 Sex female NPO: 8 hrs Preoperative diagnosis Left Hip Fracture Planned procedure Left Hip Hemiarthroplasty Past Medical History Past Medical History: Includes Cardio: HTN, Dyslipidemia Endo: Diabetes Pulm: COPD Musculoskeletal: Osteoarthritis Heme: Anemia, Thrombocytopenia Surgery & Anesthesia Issues No known issue Meds Anticoagulation: No Beta Hadley within 24 hr: No Reason Beta Hadley not given: Pt. not on B-Hadley Reported Medications Sitagliptin* (Januvia*) 50 Mg Tablet, 50 MG PO DAILY, #30 TAB 04/26/18 Atorvastatin Calcium (Atorvastatin Calcium) 10 Mg Tablet, 10 MG PO QHS, #30 TAB 04/26/18 Cholecalciferol (Vitamin D3) (Vitamin D3) 2,000 Unit Tab.chew, 2000 UNIT PO, TAB.CHEW 04/26/18 Losartan Potassium* (Losartan Potassium*) 50 Mg Tablet, 50 MG PO DAILY, TAB 04/26/18 Doxepin Hcl* (Doxepin Hcl*) 25 Mg Capsule, 25 MG PO HS, CAP 04/26/18 Current Medications IV Flush (NS 3 ml) 3 ml PER PROTOCOL IV ; Start 04/23/18 at 20:00 Ondansetron HCl (Zofran Tab) 4 mg Q6H PRN PO NAUSEA/VOMITING; Start 04/23/18 at 20:00 Acetaminophen (Tylenol Tab) 650 mg Q6H PRN PO .PAIN 1-3 OR TEMP Last administered on 04/23/18at 22:39; Admin Dose 650 MG; Start 04/23/18 at 20:00 Acetaminophen/ Hydrocodone Bitart (Gravelly (5/325)) 1 tab Q6H PRN PO .MOD PAIN 4- 6; Start 04/23/18 at 20:00 Morphine Sulfate (morphine) 2 mg Q4H PRN IV .SEVERE PAIN 7-10 Last administered on 04/24/18at 05:16; Admin Dose 2 MG; Start 04/23/18 at 20:00 Docusate Sodium (Colace) 100 mg Q12 PO Last administered on 04/25/18at 21:55; Admin Dose 100 MG; Start 04/23/18 at 20:00 Bisacodyl (Dulcolax) 5 mg DAILY PO Last administered on 04/25/18at 08:28; Admin Dose 5 MG; Start 04/24/18 at 09:00 Hydralazine HCl (Apresoline) 10 mg Q6H PRN IV ELEVATED BLOOD PRESSURE Last administered on 04/23/18at 22:39; Admin Dose 10 MG; Start 04/23/18 at 22:30 Diagnostic Test (Pha) (Accu-Chek) 1 ea 02 XX ; Start 04/25/18 at 02:00 Insulin Aspart (Novolog Insulin Pen) NOVOLOG *MILD* ALGORITHM WITH MEALS BEDTIME SC Last administered on 04/25/18at 12:47; Admin Dose 2 UNIT; Start 04/24/18 at 11:40 Miscellaneous Information 1 ea NOTE XX ; Start 04/24/18 at 10:30 Glucose (Glutose) 15 gm Q15M PRN PO DECREASED GLUCOSE; Start 04/24/18 at 10:30 Glucose (Glutose) 22.5 gm Q15M PRN PO DECREASED GLUCOSE; Start 04/24/18 at 10:30 Dextrose (D50w Syringe) 25 ml Q15M PRN IV DECREASED GLUCOSE; Start 04/24/18 at 10:30 Dextrose (D50w Syringe) 50 ml Q15M PRN IV DECREASED GLUCOSE; Start 04/24/18 at 10:30 Glucagon (Glucagen) 1 mg Q15M PRN IM DECREASED GLUCOSE; Start 04/24/18 at 10:30 Glucose (Glutose) 15 gm Q15M PRN BUCCAL DECREASED GLUCOSE; Start 04/24/18 at 10:30 Cholecalciferol (Vitamin D) 2,000 unit DAILY PO ; Start 04/26/18 at 09:00 Doxepin HCl (Sinequan) 25 mg HS PO Last administered on 04/25/18at 21:55; Admin Dose 25 MG; Start 04/25/18 at 21:00 Losartan Potassium (Cozaar) 50 mg DAILY PO Last administered on 04/26/18at 08:43; Admin Dose 50 MG; Start 04/26/18 at 09:00 Atorvastatin Calcium (Lipitor) 10 mg HS PO Last administered on 04/25/18at 21:55; Admin Dose 10 MG; Start 04/25/18 at 21:00 Sodium Chloride 1,000 ml @ 40 mls/hr Q24H IV Last administered on 04/26/18at 00:06; Admin Dose 40 MLS/HR; Start 04/26/18 at 00:00 Meds reviewed: Yes Allergies Coded Allergies: No Known Allergy (Unverified , 04/23/18) Allergies Reviewed: Yes Labs/Studies Labs Reviewed: Reviewed by anesthesiologist Result Diagram: 04/26/18 0443 04/26/18 0443 Laboratory Tests 04/26/18 04:43 test: N/A Studies: ECG (NASR), CXR (COPD, no acute disease) Pre-procedure Exam Last vitals Vital Signs Date Temp Pulse Resp B/P (MAP) Pulse Ox O2 O2 Flow FiO2 Time Delivery Rate 04/26/18 72 18 147/67 98 Room Air 13:00 (93) 04/26/18 98.4 08:29 04/25/18 2.0 20:00 Airway: Adequate mouth opening, Adequate thyromental dist Mallampati: Mallampati II Teeth: Normal Lung: Normal Heart: Normal ASA Physical Status ASA physical status: 3 Emergency: None Planned Anesthetic General/MAC: LMA, MAC Neuraxial: Spinal Planned Pain Management Sub-arachniod narcotics, Single shot nerve block, Parenteral pain med Pre-operative Attestations Prior to commencing anesthesia and surgery, the patient was re-evaluated, there was verification of: *The patient's identity *The results of appropriate recent lab work and preoperative vital signs *The above evaluation not changing prior to induction *Anesthetic plan, risk benefits, alternative and complications discussed with patient/family; questions answered; patient/family understands, accepts and wishes to proceed. MEE SPARROW MD Apr 26, 2018 17:09
[2018-04-26] MEDS ORDERED: CEFAZOLIN 1 GM INJ ONE (17:12)
[2018-04-26] MEDS ORDERED: FENTAnyl 50 MCG/ML VIAL ONE (17:12)
[2018-04-26] MEDS ORDERED: PROPOFOL 20 ML ONE (17:12)
[2018-04-26] MEDS ORDERED: ROPIVACAINE 0.2% 20 ML VIAL ONE (17:13)
--- NOTE | 2018-04-26 17:41 | HPN ---
Date/Time of Note Date/Time of Note DATE: 04/26/18 TIME: 17:41 Interval H&P Admission Note Pt. seen H&P reviewed: No system changes MARIANO LASSITER MD Apr 26, 2018 17:41
[2018-04-26] MEDS ORDERED: PHENYLephrine (100 MCG/ML) 5ML SYG ONE ×3 (18:07→19:28)
[2018-04-26] MEDS ORDERED: POLYMYXIN/BACITRACIN 1L IRRIG IRR ONE (18:37)
[2018-04-26] MEDS ORDERED: METOCLOPRAMIDE 10 MG INJ ONE (18:47)
[2018-04-26] MEDS ORDERED: ONDANSETRON 4 MG INJ ONE (18:47)
[2018-04-26] MEDS ORDERED: DEXAMETHASONE 4 MG/ML 5 ML INJ ONE (18:47)
[2018-04-26] MEDS ORDERED: OXYCODONE/ACETAMINOPHEN (5/325) TAB PO PRN (19:30)
[2018-04-26] MEDS ORDERED: LABETALOL HCL 20MG INJ IV PRN (19:30)
[2018-04-26] MEDS ORDERED: METOCLOPRAMIDE 10 MG INJ IV PRN (19:30)
[2018-04-26] MEDS ORDERED: ALBUMIN HUMAN 5% 250 ML IV PRN (19:30)
[2018-04-26] MEDS ORDERED: EPHEDrine SULFATE 50 MG/5 ML SYG IV PRN (19:30)
[2018-04-26] MEDS ORDERED: FENTAnyl 50 MCG/ML VIAL IV PRN ×2 (19:30)
[2018-04-26] MEDS ORDERED: NALBUPHINE HCL (10 MG/1 ML) INJ IV PRN (19:30)
[2018-04-26] MEDS ORDERED: HYDROCODONE/APAP (5/325) TAB PO PRN ×2 (19:30→20:00)
[2018-04-26] MEDS ORDERED: NALOXONE (0.4 MG/ML) INJ IV PRN (19:30)
[2018-04-26] MEDS ORDERED: ONDANSETRON 4 MG INJ IV PRN ×2 (19:30)
[2018-04-26] MEDS ORDERED: ACETAMINOPHEN 500 MG TAB PO PRN (19:30)
[2018-04-26] MEDS ORDERED: DIPHENHYDRAMINE 50 MG INJ IV PRN (19:30)
[2018-04-26] MEDS ORDERED: hydrALAzine 20 MG INJ IV PRN (19:30)
[2018-04-26] MEDS ORDERED: HYDROmorphONE 1 MG/5 ML IV SYRINGE IV PRN ×2 (19:30)
[2018-04-26] MEDS ORDERED: morphine 2 MG INJ IV PRN (19:30)
[2018-04-26] MEDS ORDERED: HYDROmorphONE 0.5 MG/0.5 ML SYG IV PRN (19:30)
[2018-04-26] MEDS ORDERED: SOD CHLORIDE 0.9% 1,000 ML IV SCH (19:50)
--- NOTE | 2018-04-26 19:57 | PAC ---
Date/Time of Note Date/Time of Note DATE: 04/26/18 TIME: 19:56 Post-Anesthesia Notes Post-Anesthesia Note Last documented vital signs Vital Signs Date Temp Pulse Resp B/P (MAP) Pulse Ox O2 O2 Flow FiO2 Time Delivery Rate 04/26/18 98.3 78 16 109/45 100 face mask 10 L 19:52 (68) 04/26/18 72 18 147/67 98 Room Air 13:00 (93) 04/25/18 2.0 20:00 Activity: WNL Respiratory function: WNL Cardiovascular function: WNL Mental status: Baseline Pain reasonably controlled: Yes Hydration appropriate: Yes Nausea/Vomiting absent: Yes MEE SPARROW MD Apr 26, 2018 19:57
[2018-04-26] MEDS ORDERED: morphine 4 MG/ML VIAL IV PRN (20:00)
[2018-04-26] MEDS ORDERED: NACL 0.9% 3 ML SYG IV SCH (20:00)
[2018-04-26] MEDS: ATORVASTATIN 10 MG TAB PO SCH (21:43)
[2018-04-26] MEDS: DOXEPIN 25 MG CAP PO SCH (21:43)
[2018-04-26] MEDS: CEFAZOLIN 2 GM/50 ML (PMX) 50 ML IVPB SCH (21:43)
[2018-04-27] VITALS (9 sets, daily range): BP systolic 108–157; BP diastolic 52–83; PULSE 81–104; RESP 16–19
--- NOTE | 2018-04-27 01:02 | SIPON ---
Date/Time of Note Date/Time of Note DATE: 04/27/18 TIME: 00:51 Operative Report Preoperative Diagnosis femoral neck fracture of Lt. hip Postoperative Diagnosis same Operation/Procedure Performed hemiarthro plasty of Lt. hip Surgeon see signature line family law legal assistant none Anesthesia: general Estimated blood loss: 250 - 300 ml's Transfusion Required none Specimen femoral head Grafts/Implants bipolar femoral head prosthesis Complications none MARIANO LASSITER MD Apr 27, 2018 01:01
[2018-04-27] MEDS: ACCU-CHEK XX SCH (01:34)
[2018-04-27] MEDS: CEFAZOLIN 2 GM/50 ML (PMX) 50 ML IVPB SCH ×2 (03:58→11:43)
[2018-04-27] MEDS: BISACODYL (EC) 5 MG TAB PO SCH (08:47)
[2018-04-27] MEDS: LOSARTAN 50 MG TAB PO SCH (08:48)
[2018-04-27] MEDS: CHOLECALCIFEROL 2,000 UNIT CAP PO SCH (08:48)
[2018-04-27] MEDS: DOCUSATE SODIUM 100 MG CAP PO SCH ×2 (08:48→20:20)
[2018-04-27] MEDS: INSULIN ASPART [NOVOLOG] 3 ML PEN SC SCH ×3 (08:49→17:40)
[2018-04-27] MEDS ORDERED: ENOXAPARIN 40 MG/0.4 ML SYG SC SCH (09:00)
[2018-04-27] MEDS ORDERED: SOD CHLORIDE 0.9% 250 ML IV* ONE (11:08)
--- NOTE | 2018-04-27 11:12 | PDOCDIS ---
Discharge Instructions CONDITION [id number] Patient Condition: [id number] CESAR Mckeon Apr 27, 2018 11:12
--- NOTE | 2018-04-27 11:23 | DS ---
Date/Time of Note Date/Time of Note DATE: 04/27/18 TIME: 11:14 Discharge Summary Admission/Discharge Info Admit Date/Time Apr 23, 2018 at 19:59 Discharge Date/Time Discharge Diagnosis # acute left hip fracture: - Secondary to mechanical fall- Imaging studies do show left femoral neck fracture -status post surgical repair # hypertension: Presently stable. - Monitor carefully; follow-up list of patient's home meds. # diabetes mellitus- Hgb A1C 6.8 -Continue sliding scale insulin # thrombocytopenia: - Unknown etiology. No signs of bleeding. Patient Condition: Stable Procedures Head CT: IMPRESSION: 1. No evidence of acute intracranial hemorrhage, infarcts, or acute intracranial pathology. 2. Mild chronic microvascular ischemic disease and diffuse volume loss. 3. Moderate atherosclerotic vascular disease 2D ECHO: Conclusions: Normal left ventricular systolic function. Normal left ventricular cavity size. Normal left ventricular wall thickness. Ejection fraction is visually estimated at 60-65 %.Mild mitral annular calcification. Trace mitral regurgitation. Normal appearance of the tricuspid valve. There is trace tricuspid regurgitation. Date/Time of Note Date/Time of Note DATE: 04/27/18 TIME: 00:51 Operative Report Preoperative Diagnosis femoral neck fracture of Lt. hip Postoperative Diagnosis same Operation/Procedure Performed hemiarthro plasty of Lt. hip Hx of Present Illness 82-year-old female with a history of [id number]-[id number] diabetes mellitus and hypertension. The patient lives on her own and is able to attend her activities of daily living. The patient had a mechanical fall several hours prior to arrival. She states she bent over to waste picker something and then fell on her left hip and left head. She is complaining of mild headache but denies any neck pain. She was unable to get up and bear weight due to the pain in her left hip. The patient had a previous right hip fracture several years prior to arrival. She phoned her daughter who arrived to the home and called 911 to bring her to the emergency department to be further evaluated. She did not experience any changes in vision nor has she experienced any emesis. She states the left hip pain is 10 out of 10 in intensity. Hospital Course So patient was admitted to medical surgical unit. She was seen by orthopedic surgery team. She was found with some low platelet levels but no signs of bleeding. She underwent surgical repair of her femur fracture. She tolerated the procedure well. She worked with physical therapy and occupational therapy afterwards. She did have some low hemoglobin after the surgery, thought to be secondary to some blood loss which is normal after the surgery, and was ordered to receive 1 unit of blood transfusion afterwards. If we get clearance from the orthopedic surgery team today, she will likely be discharged to a longterm facility in stable condition. See printed medical reconciliation sheet for full list of discharge medications. Home Meds Reported Medications Sitagliptin* (Januvia*) 50 Mg Tablet, 50 MG PO DAILY, #30 TAB 04/26/18 Atorvastatin Calcium (Atorvastatin Calcium) 10 Mg Tablet, 10 MG PO QHS, #30 TAB 04/26/18 Cholecalciferol (Vitamin D3) (Vitamin D3) 2,000 Unit Tab.chew, 2000 UNIT PO, TAB.CHEW 04/26/18 Losartan Potassium* (Losartan Potassium*) 50 Mg Tablet, 50 MG PO DAILY, TAB 04/26/18 Doxepin Hcl* (Doxepin Hcl*) 25 Mg Capsule, 25 MG PO HS, CAP 04/26/18 Primary Care Provider Not On Staff Doctor Time spent on discharge: > 30 minutes Pending Labs Laboratory Tests Test 04/26/18 13:07 04/26/18 20:22 04/26/18 20:35 04/26/18 21:46 Bedside 116 148 148 Glucose mg/dL (70-220) mg/dL (70-220) mg/dL (70-220) White Blood 5.4 Count 10^3/ul (4.8-1 0.8) Red Blood 2.55 Count 10^6/ul (4.20- 5.40) Hemoglobin 8.1 g/dl (12.0-16. 0) Hematocrit 24.4 % (37.0-47.0) Mean 95.7 Corpuscular fl (82.0-101.0 Volume ) Mean 31.8 Corpuscular pg (29.0-33.0) Hemoglobin Mean 33.2 Corpuscular g/dl (32.0-37. Hemoglobin Conc 0) ent Red Cell 13.6 Distribution % (11.5-14.5) Width Platelet Count 48 10^3/UL (140-4 15) Mean Platelet 11.3 Volume fl (7.4-10.4) Immature 0.400 Granulocytes % % (0.001-0.429 ) Neutrophils % % (39.0-77.0) Segmented 88 % (39-77) Neutrophils % (Manual) Band 1 % (0-4) Neutrophils % (Manual) Lymphocytes % % (15.0-51.0) Lymphocytes % 6 % (15-51) (Manual) Monocytes % % (0.0-11.0) Monocytes % 1 % (0-11) (Manual) Eosinophils % % (0.0-7.0) Eosinophils % 1 % (0-7) (Manual) Basophils % % (0.0-2.0) Basophils % 3 % (0-2) (Manual) Nucleated Red 1 % (0-0) Blood Cells % Immature 0.020 Granulocytes # 10^3/ul (0.0-0 .031) Neutrophils # 10^3/ul (1.6-7 .5) Neutrophils # 4.8 (Manual) 10^3/ul (1.6-7 .5) Band 0.0 Neutrophils # 10^3/ul (0.0-0 .6) Lymphocytes 0.3 (Manual) 10^3/ul (0.8-2 .9) Lymphocytes # 10^3/ul (0.8-2 .9) Monocytes # 10^3/ul (0.3-0 .9) Monocytes # 0.0 (Manual) 10^3/ul (0.3-0 .9) Eosinophils # 10^3/ul (0.0-0 .5) Basophils # 10^3/ul (0.0-0 .1) Basophils # 0.1 (Manual) 10^3/ul (0.0-0 .0) Nucleated Red 10^3/ul (0.0-0 Blood Cells # .0) Platelet NORMAL Estimate Polychromasia 1+ (0-0) Poikilocytosis 1+ (0-0) Anisocytosis 1+ (0-0) Ovalocytes 1+ (0-0) Sodium Level 135 mmol/L (135-14 4) Potassium 3.6 Level mmol/L (3.5-5. 1) Chloride Level 105 mmol/L (97-110 ) Carbon Dioxide 20 Level mmol/L (21-31) Anion Gap 10 (5-13) Blood Urea 17 Nitrogen mg/dl (7-20) Creatinine 0.65 mg/dl (0.44-1. 00) Est Glomerular mL/min (>60) Filtrat Rate mL/min Glucose Level 138 mg/dl (70-220) Calcium Level 7.0 mg/dl (8.4-10. 2) Test 04/27/18 04:29 04/27/18 04:37 04/27/18 06:54 04/27/18 08:42 Phosphorus 4.6 Level mg/dl (2.5-4.9) Magnesium 1.8 Level mg/dl (1.7-2.5) White Blood 5.1 Count 10^3/ul (4.8-1 0.8) Red Blood 2.37 Count 10^6/ul (4.20- 5.40) Hemoglobin 7.4 7.2 g/dl (12.0-16. g/dl (12.0-16. 0) 0) Hematocrit 22.9 22.0 % (37.0-47.0) % (37.0-47.0) Mean 96.6 Corpuscular fl (82.0-101.0 Volume ) Mean 31.2 Corpuscular pg (29.0-33.0) Hemoglobin Mean 32.3 Corpuscular g/dl (32.0-37. Hemoglobin Conc 0) ent Red Cell 13.7 Distribution % (11.5-14.5) Width Platelet Count 60 10^3/UL (140-4 15) Mean Platelet 11.1 Volume fl (7.4-10.4) Immature 0.200 Granulocytes % % (0.001-0.429 ) Neutrophils % 92.0 % (39.0-77.0) Lymphocytes % 3.3 % (15.0-51.0) Monocytes % 4.5 % (0.0-11.0) Eosinophils % 0.0 % (0.0-7.0) Basophils % 0.0 % (0.0-2.0) Nucleated Red 0.0 Blood Cells % /100WBC (0.0-0 .0) Immature 0.010 Granulocytes # 10^3/ul (0.0-0 .031) Neutrophils # 4.7 10^3/ul (1.6-7 .5) Lymphocytes # 0.2 10^3/ul (0.8-2 .9) Monocytes # 0.2 10^3/ul (0.3-0 .9) Eosinophils # 0.0 10^3/ul (0.0-0 .5) Basophils # 0.0 10^3/ul (0.0-0 .1) Nucleated Red 0.0 Blood Cells # 10^3/ul (0.0-0 .0) Sodium Level 135 mmol/L (135-14 4) Potassium 4.4 Level mmol/L (3.5-5. 1) Chloride Level 104 mmol/L (97-110 ) Carbon Dioxide 21 Level mmol/L (21-31) Anion Gap 10 (5-13) Blood Urea 23 Nitrogen mg/dl (7-20) Creatinine 0.73 mg/dl (0.44-1. 00) Est Glomerular mL/min (>60) Filtrat Rate mL/min Glucose Level 284 mg/dl (70-220) Calcium Level 7.1 mg/dl (8.4-10. 2) Bedside 285 Glucose mg/dL (70-220) CESAR STONE Apr 27, 2018 11:23
[2018-04-27] MEDS: ACETAMINOPHEN 325 MG TAB PO PRN ×2 (14:30→20:20)
[2018-04-27] MEDS: DOXEPIN 25 MG CAP PO SCH (20:20)
[2018-04-27] MEDS: ATORVASTATIN 10 MG TAB PO SCH (20:20)
--- NOTE | 2018-05-20 11:21 | OPR ---
DATE OF OPERATION: 04/24/2018 PREOPERATIVE DIAGNOSIS: Femoral neck fracture of the left hip. POSTOPERATIVE DIAGNOSIS: Femoral neck fracture of the left hip. PROCEDURE PERFORMED: Hemiarthroplasty. OPERATION PERFORMED: Hemiarthroplasty of the left hip. SURGEON: Solo Hong MD ANESTHESIA: General anesthesia. PROCEDURE AND FINDINGS: Under general anesthesia, the patient was placed in a right lateral decubitu s position with the left side up. Usual prep and drape was done exposing the left hip and left lower extremity. The left hip was approached through the usual posterolateral oblique incision. After sp litting gluteal muscles, the hip joint was entered and obvious femoral neck fracture was identified. The head was removed and a measurement revealed that the size of the head is about 46 mm in diameter . After cleaning the acetabular cavity, which was essentially within normal limits, trial reduction was carried out with different size of bipolar cup and 46 mm bipolar trial cup was providing best fit . After packing the acetabular cavity, attention was then directed to the proximal femur. Following initial preparation with box osteotome and T-handled reamer, further preparation was carried out wit h increasing size broaches. With the size 5 stem in, the trial components were assembled and the nicolás nt was reduced. After several trials, it was my impression that size 5 stem in a high-offset setting with a -4 neck and 46 bipolar cup was providing best fit. After removing all the trial components, actual component, which is size 5 stem in the high-offset se tting was inserted and this was connected to -4 neck and 46 mm bipolar cup. Joint was reduced and th e range of motion and the stability and the leg length was entirely satisfactory. After irrigation a nd hemostasis, closure of the incision was carried out using 0 Vicryl for capsules, muscles and fasci a of and 2-0 Vicryl for subcutaneous tissues. Final skin closure was carried out with skin kaylynn. Usual sterile pressure dressings were applied. The patient tolerated the entire procedure very well and was sent to the recovery room in excellent c ondition. Dictated By: SOLO GHOTRA/SCOUT Conf#: [id number] DID#: [id number] CC: GEENA SAHU MD;*EndCC*
== END 2018-04-27 20:30 | DRG 470 ==
LOC: E/R 18:22 → MS1 19:59
PROVIDERS: ADMIT Family Medicine; ATTEND Hospitalist
PROC: 0SRS0JA Replacement of Left Hip Joint, Femoral Surface with Synthetic Substitute, Uncemented, Open Approach (ICD-10-PCS; principal; 2018-04-26 17:30)
DX: S72.012A Unspecified intracapsular fracture of left femur, initial encounter for closed fracture (principal); E44.0 Moderate protein-calorie malnutrition; Z68.1 Body mass index [BMI] 19.9 or less, adult; E11.9 Type 2 diabetes mellitus without complications; Z79.4 Long term (current) use of insulin; I10 Essential (primary) hypertension; W19.XXXA Unspecified fall, initial encounter; R50.9 Fever, unspecified; D47.3 Essential (hemorrhagic) thrombocythemia; J44.9 Chronic obstructive pulmonary disease, unspecified
CPT/HCPCS: 36430; 70450; 71045; 72170; 73500; 73510; 80048; 80053; 80061; 81001; 82550; 82553; 82962; 83036; 83735; 84100; 84443; 84484; 85014; 85018; 85025; 85610; 85730; 86850; 86900; 86901; 86920; 87040; 87086; 88304; 88311; 93005; 93306; 96374; 96375; 97161; 97530; J0360; J0690; J1100; J1170; J1650; J1815; J2270; J2370; J2405; J2765; J2795; J3010; J7030; J7040; J7050; P9016

== ENCOUNTER 2018-05-02 13:05 | Emergency (ER) | payer MEDICARE, OTHER ==
[~2018-05-02] VITALS: Wt 42.2 kg
[~2018-05-02 13:05] MED LIST: ATOR10TA65 PO; CHOL200078 PO; DOXE25CA2 PO; LOSA50TA14 PO; SITA50TA2 PO
--- NOTE | 2018-05-02 13:16 | ERD ---
ER Documentation Chief Complaint Chief Complaint Low Hemoglobin HPI The patient is a 82-year-old female, presenting to the ER because of low hemoglobin at the halfway. She is unable to find a history, the history is obtained from medical record and the halfway notes She had left hip surgery recently on April 23, 2018, required blood transfusion after surgery Medical history: Diabetes mellitus, dyslipidemia, hypertension, diabetes, thrombocytopenia ROS All systems reviewed and are negative except as per history of present illness. Medications Home Meds Reported Medications Neomycin [place]/Bacitrac Zn/Poly (Triple Antibiotic Ointment) 28 Gm Oint...g., 28 GM TP DAILY 05/02/18 Ondansetron Hcl* (Zofran*) 4 Mg Tab, 4 MG PO Q4H PRN for NAUSEA AND OR VOMITING, TAB 05/02/18 Insulin Aspart* (Novolog Insulin Pen*) 100 Unit/Ml Soln, 0-12 SC .SLIDING SCALE AC, EA 05/02/18 Hydrocodone/Acetaminophen ([place] 10-325 Tablet) 1 Each Tablet, 1 TAB PO Q4 PRN for PAIN LEVEL 7-10, TAB 05/02/18 Losartan Potassium* (Losartan Potassium*) 50 Mg Tablet, 50 MG PO DAILY, TAB 05/02/18 Enoxaparin Sodium* (Lovenox*) 40 Mg/0.4 Ml Syringe, 40 MG SC DAILY, SYR 05/02/18 Docusate Sodium* (Docusate Sodium*) 100 Mg Capsule, 100 MG PO BID, #60 CAP 05/02/18 Multivits,Ca,Minerals/Iron/Fa (THERA-M CAPLET) 1 Each Tablet, 1 TAB PO DAILY, TAB 05/02/18 Bisacodyl* (Bisacodyl*) 5 Mg Tablet.dr, 5 MG PO DAILY, TAB 05/02/18 Povidone-Iodine (Betadine) 7.5% - 946 Ml Med..soap, 1 APPLIC TOP DAILY, EA 05/02/18 Acetaminophen* (Acetaminophen*) 650 Mg Tablet, 650 MG PO Q6H PRN for PAIN AND OR ELEVATED TEMP, #30 TAB 05/02/18 Atorvastatin Calcium (Atorvastatin Calcium) 10 Mg Tablet, 10 MG PO QHS, #30 TAB 04/26/18 Doxepin Hcl* (Doxepin Hcl*) 25 Mg Capsule, 25 MG PO HS, CAP 04/26/18 Discontinued Reported Medications Sitagliptin* (Januvia*) 50 Mg Tablet, 50 MG PO DAILY, #30 TAB 04/26/18 Cholecalciferol (Vitamin D3) (Vitamin D3) 2,000 Unit Tab.chew, 2000 UNIT PO, TAB.CHEW 04/26/18 Losartan Potassium* (Losartan Potassium*) 50 Mg Tablet, 50 MG PO DAILY, TAB 04/26/18 Allergies Allergies: Coded Allergies: No Known Allergy (Unverified , 04/23/18) PMhx/Soc History of Surgery: Yes (R ORIF, LT WRIST SX, RT PARTIAL KIDNEY) Anesthesia Reaction: No Hx Neurological Disorder: No Hx Respiratory Disorders: No Hx Cardiac Disorders: Yes (HTN) Hx Psychiatric Problems: No Hx Miscellaneous Medical Probl: No Hx Alcohol Use: No Hx Substance Use: No Hx Tobacco Use: No Physical Exam Vitals Vital Signs Date Temp Pulse Resp B/P (MAP) Pulse Ox O2 O2 Flow FiO2 Time Delivery Rate 05/02/18 98.9 83 17 138/62 100 Room Air 16:12 (87) 05/02/18 99.1 84 18 146/59 100 Room Air 15:00 (88) 05/02/18 99.1 91 18 188/72 98 13:15 (110) Physical Exam Const: No acute distress. Head: Atraumatic. Eyes: Normal Conjunctiva. ENT: Normal External Ears, Nose and Mouth. Neck: Full range of motion. No meningismus. Resp: Clear to auscultation bilaterally. Cardio: Regular rate and rhythm. Abd: Soft, non distended, normal bowel sounds, non tender. Skin: No petechiae or rashes. Back: No midline or flank tenderness. Ext: Left lateral lower extremity incision is healing well, no erythema, no discharge, no crepitus Neur: Awake and alert. No focal deficit Psych: Normal Mood and Affect. Result Diagram: 05/02/18 1345 05/02/18 1345 Results 24 hrs Laboratory Tests Test 05/02/18 13:45 White Blood Count 7.2 10^3/ul Red Blood Count 2.79 10^6/ul Hemoglobin 8.7 g/dl Hematocrit 26.3 % Mean Corpuscular Volume 94.3 fl Mean Corpuscular Hemoglobin 31.2 pg Mean Corpuscular Hemoglobin Concent 33.1 g/dl Red Cell Distribution Width 14.1 % Platelet Count 131 10^3/UL Mean Platelet Volume 10.3 fl Immature Granulocytes % 0.700 % Neutrophils % 81.7 % Lymphocytes % 8.2 % Monocytes % 8.3 % Eosinophils % 0.8 % Basophils % 0.3 % Nucleated Red Blood Cells % 0.0 /100WBC Immature Granulocytes # 0.050 10^3/ul Neutrophils # 5.9 10^3/ul Lymphocytes # 0.6 10^3/ul Monocytes # 0.6 10^3/ul Eosinophils # 0.1 10^3/ul Basophils # 0.0 10^3/ul Nucleated Red Blood Cells # 0.0 10^3/ul Prothrombin Time 12.5 Sec Prothrombin Time Ratio 1.0 INR International Normalized Ratio 0.92 Activated Partial Thromboplast Time 29.8 Sec Sodium Level 133 mmol/L Potassium Level 4.3 mmol/L Chloride Level 100 mmol/L Carbon Dioxide Level 29 mmol/L Anion Gap 4 Blood Urea Nitrogen 22 mg/dl Creatinine 0.70 mg/dl Est Glomerular Filtrat Rate mL/min mL/min Glucose Level 215 mg/dl Calcium Level 8.6 mg/dl Total Bilirubin 1.0 mg/dl Direct Bilirubin 0.00 mg/dl Indirect Bilirubin 1.0 mg/dl Aspartate Amino Transf (AST/SGOT) 48 IU/L Alanine Aminotransferase (ALT/SGPT) 41 IU/L Alkaline Phosphatase 108 IU/L Troponin I < 0.012 ng/ml Total Protein 6.0 g/dl Albumin 3.2 g/dl Globulin 2.80 g/dl Albumin/Globulin Ratio 1.14 Procedures/MDM MEDICAL MAKING DECISION: The patien is a 82-year-old female, presenting with anemia, is stable for o/p follow-up Consultation: I discussed the patient with her physician Dr. Vance, who a gree with outpatient work up The differential diagnoses considered include but are not limited to gastritis, peptic ulcer disease, esophageal varices, Sandra-Harmon tear, carcinoma, polyp, hemorrhoid, fissure, diverticulosis, angiodysplasia. Departure Diagnosis: Primary Impression: Anemia Additional Impression: Thrombocytopenia Condition: Good Comments I discussed the findings with the patient. I advised the patient to follow-up with the primary physician in about 2-3 days, sooner if needed and return if any concern. Disclaimer: Inadvertent spelling and grammatical errors are likely due to EHR/dictation software use and do not reflect on the overall quality of patient care. Also, please note that the electronic time recorded on this note does not necessarily reflect the actual time of the patient encounter. MOOK CUNNINGHAM MD May 02, 2018 13:16
[2018-05-02] MEDS ORDERED: ACET-2047 PO (14:26)
[2018-05-02] MEDS ORDERED: DOCU-159 PO (14:29)
[2018-05-02] MEDS ORDERED: BISA5TAB6 PO (14:29)
[2018-05-02] MEDS ORDERED: MULT-345 PO (14:29)
[2018-05-02] MEDS ORDERED: [UNRECOGNIZED DRUG - CODE] TOP (14:29)
[2018-05-02] MEDS ORDERED: NOVO3I SC (14:32)
[2018-05-02] MEDS ORDERED: LOSA50TA14 PO (14:32)
[2018-05-02] MEDS ORDERED: ENOX40DI14 SC (14:32)
[2018-05-02] MEDS ORDERED: HYDR-3980 PO (14:32)
[2018-05-02] MEDS ORDERED: NEOM28OI2 TP (14:40)
[2018-05-02] MEDS ORDERED: ONDA4TAB13 PO (14:40)
[2018-05-02 16:12] VITALS: BP 138/62; PULSE 83; RESP 17
== END 2018-05-02 18:20 | disposition home or self-care (01) ==
LOC: E/R 13:05
DX: D64.9 Anemia, unspecified (principal); E11.9 Type 2 diabetes mellitus without complications; I10 Essential (primary) hypertension; D69.6 Thrombocytopenia, unspecified; Z79.4 Long term (current) use of insulin
CPT/HCPCS: 36415; 80053; 84484; 85025; 85610; 85730; 86850; 86900; 86901; 93005; 99284